=== PATIENT | male | born 1960 | race African-American/Black ===

== ENCOUNTER 2018-04-24 23:41 | Emergency (ER) | payer MEDICAID ==
[~2018-04-24] VITALS: Ht 180.3 cm; Wt 82.0 kg
[2018-04-25] MEDS ORDERED: ONDANSETRON HCL 4MG/2ML INJ IV STA (01:41)
[2018-04-25] MEDS ORDERED: SODIUM CHLORIDE 0.9% 1,000 ML IV ONE (01:41)
[2018-04-25] MEDS ORDERED: ACETAMINOPHEN 325MG TABLET PO STA (01:41)
[2018-04-25] MEDS ORDERED: LEVOFLOXACIN 750MG PREMIX 150 ML IV ONE (01:45)
[2018-04-25] MEDS: ALBUTEROL (0.083%) 2.5MG/3ML NEB HHN STA ×2 (02:26→02:37)
[2018-04-25 02:40] LABS: CHLORIDE 104 mEq/L (98-107)
[2018-04-25 03:03] LABS: BASOPHILS % 0.6 % (0.0-2.0); EOSINOPHILS % 0.2 % (0.0-5.0); HEMATOCRIT. 37.3 % (42.0-52.0); LYMPHOCYTES % 12.3 % (20.0-50.0); MEAN CORPUSCULAR HEMOGLOBIN 23.2 pg (28.0-32.0); MEAN CORPUSCULAR VOLUME 72.4 fL (80.0-94.0); MEAN PLATELET VOLUME 8.1 fl (7.4-10.4); MONOCYTES % 8.4 % (2.0-8.0); NEUTROPHILS % 78.5 % (40.0-76.0); PLATELET 429 x1000/uL (130-400); RED BLOOD CELL COUNT 5.15 mill/uL (4.7-6.1); RED CELL DISTRIBUTION WIDTH 20.3 % (11.6-14.6)
[2018-04-25 04:39] VITALS: BP 136/82
== END 2018-04-25 04:48 | disposition home or self-care (01) ==
LOC: ER 23:41
DX: J40 Bronchitis, not specified as acute or chronic (principal); R50.9 Fever, unspecified
CPT/HCPCS: 36415; 71045; 80053; 83605; 84145; 85025; 87040; 87804; 94640; 96365; 96366; 96375; 99284; J1956; J2405; J7030; J7611

== ENCOUNTER 2019-05-20 14:50 | Inpatient (IN) | payer MEDICAID ==
[~2019-05-20] VITALS: Ht 175.3 cm; Wt 91.6 kg
[2019-05-20] MEDS ORDERED: SODIUM CHLORIDE 0.9% 1,000 ML IV ONE (15:48)
[2019-05-20 16:01] LABS: BASOPHILS % 0.9 % (0.0-2.0); EOSINOPHILS % 0.9 % (0.0-5.0); HEMATOCRIT. 52.8 % (42.0-52.0); HEMOGLOBIN. 17.9 g/dL (14.0-18.0); LYMPHOCYTES % 23.7 % (20.0-50.0); MEAN CORPUSCULAR HEMOGLOBIN 29.8 pg (28.0-32.0); MEAN CORPUSCULAR VOLUME 88.1 fL (80.0-94.0); MEAN PLATELET VOLUME 8.1 fl (7.4-10.4); NEUTROPHILS % 66.5 % (40.0-76.0); PLATELET 461 x1000/uL (130-400); RED CELL DISTRIBUTION WIDTH 16.5 % (11.6-14.6)
[2019-05-20 16:03] LABS: CHLORIDE 105 mEq/L (98-107)
[2019-05-20 16:05] LABS: PROTHROMBIN TIME 10.3 sec (9.6-11.0)
[2019-05-20 17:34] LABS: CLARITY URINE CLEAR (CLEAR); COLOR URINE YELLOW (YELLOW); KETONES URINE NEGATIVE (NEGATIVE); LEUKOCYTE ESTERASE URINE TRACE (NEGATIVE); NITRITE URINE NEGATIVE (NEGATIVE); OCCULT BLOOD URINE NEGATIVE (NEGATIVE); PROTEIN URINE NEGATIVE (NEGATIVE); SPECIFIC GRAVITY URINE 1.018 (1.005-1.030); UROBILINOGEN URINE 0.2 E.U./dL (0.2-1.0)
[2019-05-20] MEDS ORDERED: ASPIRIN 325MG EC TABLET PO ONE (17:45)
[2019-05-20 21:00] VITALS: BP 128/80
[2019-05-20] MEDS ORDERED: ACETAMINOPHEN 650MG/20.3ML UDC PO PRN (23:45)
[2019-05-20] MEDS ORDERED: CLONIDINE 0.1MG TABLET PO PRN (23:45)
[2019-05-20] MEDS ORDERED: HYDROCODONE/ACETAMINOPHEN 5/325MG TABLET PO PRN (23:45)
[2019-05-20] MEDS ORDERED: ONDANSETRON HCL 4MG/2ML INJ IV PRN (23:45)
[2019-05-21] VITALS (7 sets, daily range): BP systolic 115–134; BP diastolic 72–91
[2019-05-21 01:42] LABS: CREATINE KINASE 105 IU/L (39-308)
[2019-05-21 01:43] LABS: CREATINE KINASE MB FRACTION < 1.0 ng/mL (0.5-3.6)
[2019-05-21] MEDS ORDERED: ASPI-1497 MT (05:08)
[2019-05-21] MEDS ORDERED: FLUO10CA25 PO (05:08)
[2019-05-21] MEDS ORDERED: HYDR25TA MT (05:08)
[2019-05-21] MEDS ORDERED: OLAN5TAB3 PO (05:08)
[2019-05-21] MEDS ORDERED: LEVO100T9 MT (05:08)
[2019-05-21] MEDS ORDERED: LEVOTHYROXINE SODIUM 100MCG TABLET PO SCH (07:10)
[2019-05-21] MEDS: ASPIRIN 81MG EC TABLET PO SCH (10:44)
[2019-05-21] MEDS: HYDROCHLOROTHIAZIDE 25MG TABLET PO SCH (10:44)
[2019-05-21] MEDS: ENOXAPARIN 40MG/0.4ML SYR SUBCUT SCH (10:45)
[2019-05-21 13:25] LABS: EOSINOPHILS % 1.6 % (0.0-5.0); HEMATOCRIT. 51.9 % (42.0-52.0); HEMOGLOBIN. 17.3 g/dL (14.0-18.0); LYMPHOCYTES % 30.2 % (20.0-50.0); MEAN CORPUSCULAR VOLUME 87.1 fL (80.0-94.0); NEUTROPHILS % 55.2 % (40.0-76.0); PLATELET 448 x1000/uL (130-400); RED BLOOD CELL COUNT 5.97 mill/uL (4.7-6.1); RED CELL DISTRIBUTION WIDTH 16.5 % (11.6-14.6)
[2019-05-21 13:34] LABS: CHLORIDE 106 mEq/L (98-107)
[2019-05-21 13:45] LABS: LDL CHOLESTEROL 113 mg/dL (5-100)
[2019-05-21 13:45] LABS: *BENZODIAZEPINES SCREEN URINE NEGATIVE (NEGATIVE); *COCAINE SCREEN URINE PRESUMTIVE POSITIVE (NEGATIVE); METHADONE URINE SCREEN NEGATIVE (NEGATIVE); OPIATES URINE SCREEN NEGATIVE (NEGATIVE); PHENCYCLIDINE URINE SCREEN PRESUMTIVE POSITIVE (NEGATIVE)
[2019-05-21 13:46] LABS: *AMPHETAMINES SCREEN URINE NEGATIVE (NEGATIVE); *BARBITURATES SCREEN URINE NEGATIVE (NEGATIVE); CANNABINOID URINE SCREEN NEGATIVE (NEGATIVE)
[2019-05-21 13:46] LABS: CREATINE KINASE 93 IU/L (39-308)
[2019-05-21 13:47] LABS: HDL CHOLESTEROL 48 mg/dL (40-59)
[2019-05-21 13:49] LABS: CREATINE KINASE MB FRACTION < 1.0 ng/mL (0.5-3.6)
[2019-05-21] MEDS: LEVOTHYROXINE SODIUM 100MCG TABLET PO SCH (16:30)
[2019-05-21 17:41] LABS: CREATINE KINASE 92 IU/L (39-308)
[2019-05-21 17:42] LABS: CREATINE KINASE MB FRACTION < 1.0 ng/mL (0.5-3.6)
[2019-05-22] VITALS (7 sets, daily range): BP systolic 112–130; BP diastolic 70–89
[2019-05-22 06:44] LABS: T4 FREE 0.69 ng/dL (0.76-1.46)
[2019-05-22] MEDS: HYDROCHLOROTHIAZIDE 25MG TABLET PO SCH (09:00)
[2019-05-22] MEDS: ASPIRIN 81MG EC TABLET PO SCH (09:00)
[2019-05-22] MEDS: LEVOTHYROXINE SODIUM 100MCG TABLET PO SCH (09:01)
[2019-05-22] MEDS: ENOXAPARIN 40MG/0.4ML SYR SUBCUT SCH (09:02)
[2019-05-22] MEDS ORDERED: ATORVASTATIN CALCIUM 20MG TABLET PO SCH (21:00)
[2019-05-23 04:00] VITALS: BP 127/80
[2019-05-23] MEDS: LEVOTHYROXINE SODIUM 100MCG TABLET PO SCH (07:04)
[2019-05-23 08:00] VITALS: BP 129/71
[2019-05-23] MEDS: ASPIRIN 81MG EC TABLET PO SCH (08:58)
[2019-05-23] MEDS: ENOXAPARIN 40MG/0.4ML SYR SUBCUT SCH (08:58)
[2019-05-23] MEDS: HYDROCHLOROTHIAZIDE 25MG TABLET PO SCH (08:58)
[2019-05-23 12:00] VITALS: BP 105/65
[2019-05-23 17:15] VITALS: BP 105/66
== END 2019-05-23 18:30 | disposition home or self-care (01) | DRG 816 ==
LOC: ER 15:05 → 8WST 17:40 → EDBEDREQ 17:44 → EDBEDREQTM 17:44 → ENRESERV 19:16
PROVIDERS: ADMIT Internal Medicine; ATTEND Internal Medicine
DX: T40.5X1A Poisoning by cocaine, accidental (unintentional), initial encounter (principal); F20.9 Schizophrenia, unspecified; G90.8 Other disorders of autonomic nervous system; M48.02 Spinal stenosis, cervical region; M50.222 Other cervical disc displacement at C5-C6 level; E05.90 Thyrotoxicosis, unspecified without thyrotoxic crisis or storm; F14.10 Cocaine abuse, uncomplicated; E78.5 Hyperlipidemia, unspecified; F31.9 Bipolar disorder, unspecified; M46.90 Unspecified inflammatory spondylopathy, site unspecified; I10 Essential (primary) hypertension; M48.061 Spinal stenosis, lumbar region without neurogenic claudication; E03.9 Hypothyroidism, unspecified; F17.210 Nicotine dependence, cigarettes, uncomplicated; M47.816 Spondylosis without myelopathy or radiculopathy, lumbar region; I73.9 Peripheral vascular disease, unspecified; M47.817 Spondylosis without myelopathy or radiculopathy, lumbosacral region; M51.27 Other intervertebral disc displacement, lumbosacral region; Z79.899 Other long term (current) drug therapy; Z71.51 Drug abuse counseling and surveillance of drug abuser; Z79.82 Long term (current) use of aspirin; Y92.89 Other specified places as the place of occurrence of the external cause
CPT/HCPCS: 36415; 70544; 70553; 71045; 72141; 72148; 74176; 80048; 80053; 80061; 80305; 80320; 81003; 82550; 82553; 82962; 83880; 84439; 84443; 84480; 84484; 85025; 93306; 93880; 97162; 99285; J1650; J7030; G0480

== ENCOUNTER 2020-04-28 16:12 | Emergency (ER) | payer MEDICAID ==
[~2020-04-28] VITALS: Ht 167.6 cm; Wt 81.0 kg
[~2020-04-28 16:12] MED LIST: ASPI-1497 MT; FLUO10CA25 PO; HYDR25TA MT; LEVO100T9 MT; OLAN5TAB3 PO
[2020-04-28] MEDS ORDERED: ASPIRIN 81MG TABLET PO ONE (16:45)
[2020-04-28] MEDS: NITROGLYCERIN 0.4MG TABLET SL SL PRN ×3 (17:23→17:37)
[2020-04-28 18:03] LABS: BASOPHILS % 1.3 % (0.0-2.0); EOSINOPHILS % 1.7 % (0.0-5.0); HEMATOCRIT. 44.5 % (42.0-52.0); HEMOGLOBIN. 14.7 g/dL (14.0-18.0); LYMPHOCYTES % 29.9 % (20.0-50.0); MEAN CORPUSCULAR HEMOGLOBIN 25.4 pg (28.0-32.0); MEAN CORPUSCULAR VOLUME 76.8 fL (80.0-94.0); MEAN PLATELET VOLUME 7.9 fl (7.4-10.4); MONOCYTES % 6.3 % (2.0-8.0); NEUTROPHILS % 60.8 % (40.0-76.0); PLATELET 396 x1000/uL (130-400); RED BLOOD CELL COUNT 5.79 mill/uL (4.7-6.1); RED CELL DISTRIBUTION WIDTH 18.7 % (11.6-14.6)
[2020-04-28 18:06] LABS: CHLORIDE 105 mEq/L (98-107)
[2020-04-28 18:12] LABS: ETHANOL BLOOD < 10 mg/dL
[2020-04-28 18:17] LABS: INR 0.9; PARTIAL THROMBOPLASTIN TIME 30.8 sec (23.4-31.0); PROTHROMBIN TIME 9.8 sec (9.6-11.0)
[2020-04-28 19:20] VITALS: BP 140/80
== END 2020-04-28 19:48 | disposition left against medical advice (07) ==
LOC: ER 16:12
DX: R07.89 Other chest pain (principal); R19.7 Diarrhea, unspecified; R50.9 Fever, unspecified; I10 Essential (primary) hypertension; F14.10 Cocaine abuse, uncomplicated; F16.10 Hallucinogen abuse, uncomplicated; E03.9 Hypothyroidism, unspecified; F17.290 Nicotine dependence, other tobacco product, uncomplicated; Z79.899 Other long term (current) drug therapy; Z79.82 Long term (current) use of aspirin
CPT/HCPCS: 36415; 71045; 80053; 80320; 83880; 84484; 85025; 85610; 85730; 93005; 99285; 99406; Z7610; G0480

== ENCOUNTER 2020-07-27 09:28 | Emergency (ER) | payer MEDICAID, OTHER ==
[~2020-07-27] VITALS: Ht 172.7 cm; Wt 72.0 kg
[2020-07-27 09:52] VITALS: BP 149/79
== END 2020-07-27 11:43 | disposition home or self-care (01) ==
LOC: ER 09:33
DX: K40.90 Unilateral inguinal hernia, without obstruction or gangrene, not specified as recurrent (principal); I10 Essential (primary) hypertension; Z86.59 Personal history of other mental and behavioral disorders
CPT/HCPCS: 99281

== ENCOUNTER 2020-10-02 15:39 | Emergency (ER) | payer MEDICAID ==
[~2020-10-02] VITALS: Ht 172.7 cm; Wt 81.0 kg
[2020-10-02] MEDS ORDERED: IBUP-2029 MT (15:57)
[2020-10-02 16:25] VITALS: BP 154/88
== END 2020-10-02 16:26 | disposition home or self-care (01) ==
LOC: ER 15:39
DX: K40.90 Unilateral inguinal hernia, without obstruction or gangrene, not specified as recurrent (principal); F20.9 Schizophrenia, unspecified; F32.9 Major depressive disorder, single episode, unspecified; E03.9 Hypothyroidism, unspecified; Z79.82 Long term (current) use of aspirin
CPT/HCPCS: 99281

== ENCOUNTER 2020-10-15 00:15 | Emergency (ER) | payer MEDICAID ==
[~2020-10-15] VITALS: Ht 172.7 cm; Wt 82.0 kg
[~2020-10-15 00:15] MED LIST changes: +IBUP-2029 MT
[2020-10-15] MEDS ORDERED: VISCOUS LIDOCAINE 2% 15 ML UDC PO ONE (00:45)
[2020-10-15] MEDS ORDERED: MAGNESIUM/ALUMINUM HYDROXIDE/SIMETHICONE 30ML UDC PO ONE (00:45)
[2020-10-15 00:57] LABS: BASOPHILS % 1.3 % (0.0-2.0); EOSINOPHILS % 1.6 % (0.0-5.0); HEMATOCRIT. 41.9 % (42.0-52.0); HEMOGLOBIN. 13.7 g/dL (14.0-18.0); LYMPHOCYTES % 41.5 % (20.0-50.0); MEAN CORPUSCULAR VOLUME 76.4 fL (80.0-94.0); MEAN PLATELET VOLUME 7.4 fl (7.4-10.4); MONOCYTES % 9.4 % (2.0-8.0); NEUTROPHILS % 46.2 % (40.0-76.0); PLATELET 435 x1000/uL (130-400); RED BLOOD CELL COUNT 5.49 mill/uL (4.7-6.1); RED CELL DISTRIBUTION WIDTH 19.2 % (11.6-14.6)
[2020-10-15 00:59] LABS: CHLORIDE 107 mEq/L (98-107)
[2020-10-15] MEDS ORDERED: FAMO-135 MT (03:20)
[2020-10-15 03:45] VITALS: BP 138/81
== END 2020-10-15 03:45 | disposition home or self-care (01) ==
LOC: ER 00:15
DX: K29.70 Gastritis, unspecified, without bleeding (principal); Z79.899 Other long term (current) drug therapy; Z79.82 Long term (current) use of aspirin; Z98.890 Other specified postprocedural states
CPT/HCPCS: 36415; 71045; 80053; 83880; 84484; 85025; 93005; 99285

== ENCOUNTER 2020-12-29 22:09 | Emergency (ER) | payer MEDICAID ==
[~2020-12-29] VITALS: Ht 172.7 cm; Wt 77.0 kg
[~2020-12-29 22:09] MED LIST changes: +FAMO-135 MT
[2020-12-29 22:34] VITALS: BP 139/82
== END 2020-12-30 00:45 | disposition home or self-care (01) ==
LOC: ER 22:18
DX: K40.90 Unilateral inguinal hernia, without obstruction or gangrene, not specified as recurrent (principal); I10 Essential (primary) hypertension; E05.90 Thyrotoxicosis, unspecified without thyrotoxic crisis or storm
CPT/HCPCS: 99281